=== PATIENT | male | born 1980 | race Two or more races ===

== ENCOUNTER 2018-05-31 20:24 | Emergency (ER) | payer SELFPAY ==
[~2018-05-31] VITALS: Ht 165.1 cm; Wt 77.1 kg
[2018-05-31] MEDS ORDERED: IV NORMAL SALINE 1000ML BAG 1,000 ML IV ONE (22:30)
[2018-05-31] MEDS ORDERED: ONDANSETRON PF 4 MG/2 ML VIAL. IV ONE (22:30)
[2018-05-31] MEDS ORDERED: ONDANSETRON ODT 4 MG TAB.RAPDIS. PO ONE (22:30)
[2018-05-31] MEDS ORDERED: MECLIZINE HCL 12.5 MG TABLET. PO ONE (22:30)
--- NOTE | 2018-05-31 22:36 | PHYS DOC ---
Past Medical History Past Medical History: No Pertinent History Past Surgical History: No Surgical History Alcohol Use: None Drug Use: None Adult General Chief Complaint Chief Complaint: HEADACHE HPI HPI Patient is a 37 year old [place]utanese-speaking male with no significant medical history who presents today complaining of dizziness intermittently only when he turns his head [id number] that has been occurring since Sunday after he came from work. Patient denies any injury. He states on Sunday he had a sensation of the room spinning at home. Patient states since then his had a couple intermittent episodes of frontal headache only when he turns his head side-to- side. He keeps turning his head [id number] in the ED. Denies any nausea vomiting. Denies any chest pain or shortness of breath. Denies any significant previous medical history. Patient is also complaining of a nonproductive cough for 2 weeks. Review of Systems Review of Systems Constitutional: Denies fever or chills [] Eyes: Denies change in visual acuity, redness, or eye pain [] HENT: Denies nasal congestion or sore throat [] Respiratory: Denies cough or shortness of breath [] Cardiovascular: No additional information not addressed in HPI [] GI: Denies abdominal pain, nausea, vomiting, bloody stools or diarrhea [] : Denies dysuria or hematuria [] Musculoskeletal: Denies back pain or joint pain [] Integument: Denies rash or skin lesions [] Neurologic: Reports headache, dizziness, denies focal weakness or sensory changes [] All other systems were reviewed and found to be within normal limits, except as documented in this note. Current Medications Current Medications Current Medications Medications (Trade) Dose Ordered Sig/Karyn Start Time Stop Time Status Last Admin Dose Admin Meclizine HCl (Antivert) 25 mg 1X ONCE 05/31/18 22:30 05/31/18 22:31 DC 05/31/18 23:05 25 MG Ondansetron HCl (Zofran Odt) 4 mg 1X ONCE 05/31/18 22:30 05/31/18 22:31 DC 05/31/18 23:05 4 MG Ondansetron HCl (Zofran) 4 mg 1X ONCE 05/31/18 22:30 05/31/18 22:31 Cancel Sodium Chloride 1,000 ml @ 1,000 mls/hr 1X ONCE 05/31/18 22:30 05/31/18 23:29 Cancel Allergies Allergies Allergies Coded Allergies Type Severity Reaction Last Updated Verified No Known Drug Allergies 05/31/18 No Physical Exam Physical Exam Constitutional: Well developed, well nourished, no acute distress, non-toxic appearance. [] HENT: Normocephalic, atraumatic, bilateral external ears normal, oropharynx moist, no oral exudates, nose normal. [] Eyes: PERRLA, EOMI, conjunctiva normal, no discharge. [] Neck: Normal range of motion, no tenderness, supple, no stridor. [] Cardiovascular:Heart rate regular rhythm, no murmur [] Lungs & Thorax: Bilateral breath sounds clear to auscultation [] Abdomen: Bowel sounds normal, soft, no tenderness, no masses, no pulsatile masses. [] Skin: Warm, dry, no erythema, no rash. [] Back: No tenderness, no CVA tenderness. [] Extremities: No tenderness, no cyanosis, no clubbing, ROM intact, no edema. [] Neurologic: Alert and oriented X 3, normal motor function, normal sensory function, no focal deficits noted. Cranial nerves II through XII intact Psychologic: Affect normal, judgement normal, mood normal. [] Current Patient Data Vital Signs Vital Signs Date Time Temp Pulse Resp B/P (MAP) Pulse Ox O2 Delivery O2 Flow Rate FiO2 05/31/18 22:09 97.8 98 18 172/96 (121) 96 Room Air 97.8 Lab Values Laboratory Tests Test 05/31/18 22:17 05/31/18 22:58 White Blood Count 8.4 x10^3/uL (4.0-11.0) Red Blood Count 5.62 x10^6/uL (4.30-5.70) Hemoglobin 17.5 g/dL (13.0-17.5) Hematocrit 48.6 % (39.0-53.0) Mean Corpuscular Volume 87 fL (79-100) Mean Corpuscular Hemoglobin 31 pg (25-35) Mean Corpuscular Hemoglobin Concent 36 g/dL (31-37) Red Cell Distribution Width 13.8 % (11.5-14.5) Platelet Count 203 x10^3/uL (140-400) Neutrophils (%) (Auto) 62 % (31-73) Lymphocytes (%) (Auto) 29 % (24-48) Monocytes (%) (Auto) 8 % (0-9) Eosinophils (%) (Auto) 1 % (0-3) Basophils (%) (Auto) 0 % (0-3) Neutrophils # (Auto) 5.2 x10^3uL (1.8-7.7) Lymphocytes # (Auto) 2.4 x10^3/uL (1.0-4.8) Monocytes # (Auto) 0.7 x10^3/uL (0.0-1.1) Eosinophils # (Auto) 0.1 x10^3/uL (0.0-0.7) Basophils # (Auto) 0.0 x10^3/uL (0.0-0.2) Sodium Level 141 mmol/L (136-145) Potassium Level 3.8 mmol/L (3.5-5.1) Chloride Level 102 mmol/L (98-107) Carbon Dioxide Level 28 mmol/L (21-32) Anion Gap 11 (6-14) Blood Urea Nitrogen 16 mg/dL (8-26) Creatinine 0.8 mg/dL (0.7-1.3) Estimated GFR (Cockcroft-Gault) 108.8 Glucose Level 97 mg/dL (70-99) Calcium Level 9.8 mg/dL (8.5-10.1) Troponin I Quantitative < 0.017 ng/mL (0.000-0.055) Urine Collection Type Unknown Urine Color Yellow Urine Clarity Clear Urine pH 6.5 Urine Specific [place] 1.025 Urine Protein Negative mg/dL (NEG-TRACE) Urine Glucose (UA) Negative mg/dL (NEG) Urine Ketones (Stick) Negative mg/dL (NEG) Urine Blood Negative (NEG) Urine Nitrite Negative (NEG) Urine Bilirubin Negative (NEG) Urine Urobilinogen Dipstick 1.0 mg/dL (0.2 mg/dL) Urine Leukocyte Esterase Negative (NEG) Urine RBC Rare /HPF (0-2) Urine WBC Occ /HPF (0-4) Urine Squamous Epithelial Cells Occ /LPF Urine Amorphous Sediment Present /HPF Urine Bacteria Few /HPF (0-FEW) Urine Mucus Mod /LPF Urine Opiates Screen Neg (NEG) Urine Methadone Screen Neg (NEG) Urine Barbiturates Neg (NEG) Urine Phencyclidine Screen Neg (NEG) Urine Amphetamine/Methamphetamine Neg (NEG) Urine Benzodiazepines Screen Neg (NEG) Urine Cocaine Screen Neg (NEG) Urine Cannabinoids Screen Neg (NEG) Urine Ethyl Alcohol Neg (NEG) Laboratory Tests 05/31/18 22:17 Laboratory Tests 05/31/18 22:17 EKG EKG [] Radiology/Procedures Radiology/Procedures [] Course & Med Decision Making Course & Med Decision Making Pertinent Labs and Imaging studies reviewed. (See chart for details) This is a 37-year-old male patient presented to the ED today with headache and dizziness only when he moves his head side to side. Patient was given meclizine in the ED. He is also complaining of a nonproductive cough for three weeks. 23:[address] Yeyo Werner Disclaimer Alphonso Disclaimer This electronic medical record was generated, in whole or in part, using a voice recognition dictation system. Departure Departure Impression: Primary Impression: Vertigo Additional Impression: Cough Disposition: 01 HOME, SELF-CARE Condition: STABLE Patient Instructions: Vertigo Scripts Meclizine Hcl (MECLIZINE HCL) 25 Mg Tablet 1 TAB PO PRN TID, #30 TAB Prov: AKASH MONDRAGON Jr. DO 06/01/18 Problem Qualifiers DYLON LÓPEZ TANIYA May 31, 2018 22:36 AKASH MONDRAGON Jr. DO Jun 01, 2018 00:08
[2018-05-31 23:07] LABS: BILIRUBIN,URINE NEGATIVE (NEG); CLARITY,URINE CLEAR; COLOR,URINE YELLOW; NITRITE,URINE NEGATIVE (NEG); PH,URINE 6.5; PROTEIN,URINE NEGATIVE (NEG-TRACE)
[2018-05-31 23:08] LABS: BASO % 0 % (0-3); EOS # 0.1 x10^3/uL (0.0-0.7); EOS % 1 % (0-3); HEMATOCRIT 48.6 % (39.0-53.0); HEMOGLOBIN 17.5 g/dL (13.0-17.5); LYMPH # 2.4 x10^3/uL (1.0-4.8); LYMPH % 29 % (24-48); MEAN CORPUSCULAR HEMOGLOBIN 31 pg (25-35); MEAN CORPUSCULAR HGB CONC 36 g/dL (31-37); MEAN CORPUSCULAR VOLUME 87 fL (79-100); MONO # 0.7 x10^3/uL (0.0-1.1); MONO % 8 % (0-9); NEUT # 5.2 x10^3uL (1.8-7.7); NEUT % 62 % (31-73); PLATELET COUNT 203 x10^3/uL (140-400); RED BLOOD COUNT 5.62 x10^6/uL (4.30-5.70); RED CELL DISTRIBUTION WIDTH 13.8 % (11.5-14.5); WHITE BLOOD COUNT 8.4 x10^3/uL (4.0-11.0)
[2018-05-31 23:14] LABS: AMPHETAMINE/METHAMPHETAMINE NEG (NEG); BARBITURATES NEG (NEG); BENZODIAZEPINES NEG (NEG); CANNABINOIDS NEG (NEG); COCAINE NEG (NEG); METHADONE NEG (NEG); OPIATES NEG (NEG); PHENCYCLIDINE NEG (NEG)
[2018-05-31 23:17] LABS: BACTERIA,URINE FEW /HPF (0-FEW); RBC,URINE RARE /HPF (0-2); SQUAMOUS EPITHELIAL CELL,UR OCC /LPF; WBC,URINE OCC /HPF (0-4)
[2018-05-31 23:18] LABS: AMORPHOUS SEDIMENT,UR PRESENT /HPF
--- NOTE | 2018-05-31 23:24 | RAD ---
Indication:Cough x 3 weeks TECHNIQUE:Portable AP chest X-ray COMPARISON:None FINDINGS: Heart is normal in size. Central bilateral perihilar streaky opacities are seen. No pneumothorax or pleural effusion. Visualized bony thorax is within normal limits. IMPRESSION: Findings suggests bronchitis. Electronically signed by: Joao Morfin DO (05/31/2018 11:21 PM) [facility]
[2018-05-31 23:41] LABS: CALCIUM 9.8 mg/dL (8.5-10.1); CREATININE 0.8 mg/dL (0.7-1.3); GFR 108.8; POTASSIUM 3.8 mmol/L (3.5-5.1)
[2018-06-01] MEDS ORDERED: MECL25TA3 PO (00:08)
[2018-06-01 00:24] VITALS: BP 155/93
--- NOTE | 2018-06-01 09:23 | EKG ---
[facility] [address] [place] [address] Test Date: 2018-05-31 Test Time: 22:17:21 Pat Name: PATT HOPE Department: Room: Gender: M Client Services Associate: : [id number] Requested By: DYLON LÓPEZ Order Number: [id number] Reading MD: Kermit Mathis MD Measurements Intervals Jarratt Rate: 100 P: 62 IA: 148 QRS: 51 QRSD: 82 T: 35 QT: 322 QTc: 418 Interpretive Statements SINUS RHYTHM Electronically Signed On 06-03-2018 11:32:05 CDT by Kermit Mathis MD
== END 2018-06-01 00:26 | disposition home or self-care (01) ==
LOC: ER 20:24
DX: R42 Dizziness and giddiness (principal); R05 Cough
CPT/HCPCS: 36415; 71045; 80048; 80307; 81001; 84484; 85025; 93005; 99285; J8597; Q0162; G0479